=== PATIENT | male | born 1955 | race Caucasian/White ===

== ENCOUNTER 2018-09-08 15:06 | Emergency (ER) | payer MEDICAID ==
[~2018-09-08] VITALS: Ht 177.8 cm; Wt 88.5 kg
[~2018-09-08 15:06] MED LIST: TRAM50TA2 PO
[2018-09-08 15:14] VITALS: BP 114/74
== END 2018-09-08 16:44 | disposition home or self-care (01) ==
LOC: ED 16:20
DX: S02.2XXA Fracture of nasal bones, initial encounter for closed fracture (principal); X58.XXXA Exposure to other specified factors, initial encounter; Y93.89 Activity, other specified; Y92.89 Other specified places as the place of occurrence of the external cause; Y99.8 Other external cause status
CPT/HCPCS: 70486; 99284

== ENCOUNTER 2018-11-08 11:12 | Emergency (ER) | payer MEDICAID ==
[~2018-11-08] VITALS: Ht 177.8 cm; Wt 86.0 kg
[2018-11-08] MEDS ORDERED: ASPIRIN 81 MG TABLET CHEW PO ONE (11:30)
[2018-11-08 12:01] LABS: BASOPHILS # (AUTO) 0.03 x10^3/uL (0-0.1); BASOPHILS % (AUTO) 0 % (0-1); EOSINOPHILS # (AUTO) 0.19 x10^3/uL (0-0.4); EOSINOPHILS % (AUTO) 3 % (1-7); LYMPHOCYTES # (AUTO) 1.66 x10^3/uL (1-3.4); LYMPHOCYTES % (AUTO) 24 % (22-44); MD NO; MEAN CORPUSCULAR HEMOGLOBIN 26.5 pg (27.5-34.5); MEAN CORPUSCULAR HGB CONC 32.1 g/dL (33.2-36.2); MEAN CORPUSCULAR VOLUME 82.8 fL (81-97); MEAN PLATELET VOLUME 7.5 fL (7.4-10.4); MONOCYTES # (AUTO) 0.29 x10^3/uL (0.2-0.8); MONOCYTES % (AUTO) 4 % (2-9); NEUTROPHILS # (AUTO) 4.63 x10^3/uL (1.8-6.8); NEUTROPHILS % (AUTO) 68 % (42-75); PLATELET COUNT 210 x10^3/uL (130-400); RED BLOOD COUNT 5.76 x10^6/uL (4.38-5.82); RED CELL DISTRIBUTION WIDTH 14.4 % (9.4-14.8)
[2018-11-08 12:07] LABS: ANION GAP 7 mmol/L (5-15); CALCIUM 9.3 mg/dL (8.5-10.1); CHLORIDE 108 mmol/L (98-107)
[2018-11-08 12:12] LABS: CREATININE 1.28 mg/dL (0.7-1.3); TROPONIN I < 0.015 ng/mL (0.000-0.045)
--- NOTE | 2018-11-08 12:47 | NUR ---
MED SPECIALIST: PT TO ROOM FROM LOBBY, UPRIGHT STEADY GAIT.
[2018-11-08] MEDS ORDERED: ASPIRIN 81 MG TABLET CHEW ONE (12:49)
--- NOTE | 2018-11-08 13:02 | NUR ---
FIRST CONTACT WITH PT. PT C/O L SIDE CP SINCE 8 AM TODAY. PT'S CP LEVEL IS 3/10 AT THIS TIME. PT'S AOX4. RESPS EVEN AND UNLABORED. NSR ON [employer] WITHOUT ECTOPY RATE 60'S AT THIS TIME. ALL MONITORS IN PLACE. CALL LIGHT WITHIN REACH. EDMD AT BEDSIDE TO ASSESS NOW.
[2018-11-08 13:44] VITALS: BP 135/74
--- NOTE | 2018-11-08 13:45 | NUR ---
PT GIVEN DC INSTRUCTIONS AND SCRIPT. PT EDUCATED REGARDING DC MEDICATION. PT'S AOX4. RESPS EVEN AND UNLABORED. PT STATES "I FEEL MUCH BETTER" AT DC. PT AMB TO DC WITH STEADY GAIT. NO ACUTE DISTRESS AT DC.
== END 2018-11-08 13:46 | disposition home or self-care (01) ==
LOC: ED 13:23
DX: R07.2 Precordial pain (principal); R06.02 Shortness of breath; R61 Generalized hyperhidrosis; E78.5 Hyperlipidemia, unspecified
CPT/HCPCS: 36415; 71045; 80048; 82040; 84484; 85025; 93005; 99284

== ENCOUNTER 2020-04-28 15:50 | Emergency (ER) | payer MEDICAID ==
[~2020-04-28] VITALS: Ht 177.8 cm; Wt 89.4 kg
[2020-04-28 16:32] VITALS: BP 129/63
--- NOTE | 2020-04-28 18:33 | NUR ---
PT D/C WITH D/C SUMMARY AND SCRIPT. ALL QUESTIONS ANSWERED. PT AMBULATES TO REGISTRATION DESK WITH STEADY GAIT FOR D/C HOME. PT DENIES ANY OTHER NEEDS PERTAINING TO THIS VISIT.
== END 2020-04-28 18:36 | disposition home or self-care (01) ==
LOC: ED 18:00
DX: M75.51 Bursitis of right shoulder (principal); E78.5 Hyperlipidemia, unspecified; Z87.891 Personal history of nicotine dependence; W18.30XA Fall on same level, unspecified, initial encounter; Y93.89 Activity, other specified; Y92.89 Other specified places as the place of occurrence of the external cause; Y99.8 Other external cause status
CPT/HCPCS: 99283

== ENCOUNTER 2020-10-18 19:01 | Emergency (ER) | payer MEDICAID ==
[~2020-10-18] VITALS: Ht 177.8 cm; Wt 90.3 kg
[2020-10-18 22:08] LABS: BASOPHILS % (AUTO) 1 % (0-1); EOSINOPHILS % (AUTO) 5 % (1-7); LYMPHOCYTES % (AUTO) 35 % (22-44); MEAN CORPUSCULAR HGB CONC 33.4 g/dL (33.2-36.2); MEAN PLATELET VOLUME 7.8 fL (7.4-10.4); MONOCYTES % (AUTO) 5 % (2-9); NEUTROPHILS % (AUTO) 55 % (42-75); PLATELET COUNT 250 x10^3/uL (130-400); RED BLOOD COUNT 5.44 x10^6/uL (4.38-5.82); RED CELL DISTRIBUTION WIDTH 14.7 % (9.4-14.8)
[2020-10-18 22:10] LABS: MD NO
[2020-10-18 22:15] LABS: ALBUMIN 3.8 g/dL (3.4-5.0)
[2020-10-18 22:20] LABS: CREATININE 1.21 mg/dL (0.7-1.3); TROPONIN I < 0.015 ng/mL (0.000-0.045)
[2020-10-18 22:21] LABS: ANION GAP 5 mmol/L (5-15); CHLORIDE 109 mmol/L (98-107)
--- NOTE | 2020-10-18 23:09 | NUR ---
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
[2020-10-19] MEDS ORDERED: DEXAMETHASONE 4 MG TABLET PO ONE
[2020-10-19] MEDS ORDERED: DEXAMETHASONE 4 MG TABLET ONE (00:05)
--- NOTE | 2020-10-19 00:12 | NUR ---
MEDICATED PER EMAR EDUCATED ON TESTING RESULTS, F/U RECCOMENDATIONS, WHAT SXS TO WATCH FOR
[2020-10-19 00:37] VITALS: BP 128/71
== END 2020-10-19 00:40 | disposition home or self-care (01) ==
LOC: ED 22:47
DX: R07.89 Other chest pain (principal); E78.5 Hyperlipidemia, unspecified; Z87.891 Personal history of nicotine dependence
CPT/HCPCS: 36415; 71045; 80048; 82040; 84484; 85025; 93005; 99285